=== PATIENT | male | born 1985 | race African-American/Black ===

== ENCOUNTER 2017-01-12 22:58 | Emergency (ER) | payer SELFPAY ==
[~2017-01-12] VITALS: Ht 188 cm; Wt 79.0 kg
[2017-01-12] MEDS ORDERED: SODIUM CHLORIDE 0.9% 1,000 ML IV ONE (23:04)
[2017-01-12] MEDS ORDERED: ONDANSETRON HCL 4MG/2ML VIAL IV STA (23:04)
[2017-01-12] MEDS ORDERED: MORPHINE SULFATE 4 MG/ML CPJ (NOT FOR IM USE) IV STA (23:04)
[2017-01-12] MEDS ORDERED: CEFAZOLIN 1000MG PREMIX 50 ML IV ONE ×2 (23:08→23:15)
[2017-01-12] MEDS ORDERED: MORPHINE SULFATE 4 MG/ML CPJ (NOT FOR IM USE) IV ONE (23:10)
[2017-01-12] MEDS ORDERED: MORPHINE SULFATE 2 MG/ML CPJ (NOT FOR IM USE) ONE (23:12)
[2017-01-12] MEDS ORDERED: BACITRACIN ZINC OINT UDPKT TOP ONE (23:15)
[2017-01-12] MEDS ORDERED: TETANUS, DIPHTHERIA, PERTUSSIS VAC/PF 0.5ML (>7YR OLD) IM ONE (23:15)
[2017-01-12 23:34] LABS: BASOPHILS % 0.4 % (0.0-2.0); EOSINOPHILS % 1.9 % (0.0-5.0); HEMATOCRIT. 33.9 % (42.0-52.0); HEMOGLOBIN. 10.6 g/dL (14.0-18.0); LYMPHOCYTES % 29.1 % (20.0-50.0); MEAN CORPUSCULAR HEMOGLOBIN 24.8 pg (28.0-32.0); MEAN CORPUSCULAR VOLUME 79.1 fL (80.0-94.0); MEAN PLATELET VOLUME 9.3 fl (7.4-10.4); NEUTROPHILS % 57.6 % (40.0-76.0); PLATELET 130 x1000/uL (130-400); RED BLOOD CELL COUNT 4.29 mill/uL (4.7-6.1); RED CELL DISTRIBUTION WIDTH 14.2 % (11.6-14.6)
[2017-01-12 23:38] VITALS: BP 126/58
[2017-01-12 23:40] LABS: CARBON DIOXIDE 25 mEq/L (21-32); CHLORIDE 116 mEq/L (98-107)
[2017-01-12 23:50] LABS: PARTIAL THROMBOPLASTIN TIME 23.8 sec (24.0-34.0); PROTHROMBIN TIME 10.8 sec
[2017-01-12 23:54] LABS: CLARITY URINE TURBID (CLEAR); COLOR URINE RED (YELLOW); GLUCOSE URINE NEGATIVE (NEGATIVE); KETONES URINE NEGATIVE (NEGATIVE); LEUKOCYTE ESTERASE URINE 2+ (NEGATIVE); NITRITE URINE POSITIVE (NEGATIVE); OCCULT BLOOD URINE 2+ (NEGATIVE); PH URINE 6.5 (4.5-8.0); PROTEIN URINE 2+ (NEGATIVE); UROBILINOGEN URINE 0.2 E.U./dL (0.2-1.0)
== END 2017-01-13 00:14 | disposition short-term general hospital (02) ==
LOC: ER 23:10
DX: S31.109A Unspecified open wound of abdominal wall, unspecified quadrant without penetration into peritoneal cavity, initial encounter (principal); R31.0 Gross hematuria; W34.00XA Accidental discharge from unspecified firearms or gun, initial encounter; Y93.89 Activity, other specified; Y92.9 Unspecified place or not applicable; Y99.8 Other external cause status
CPT/HCPCS: 36415; 51702; 71010; 72170; 74000; 80048; 81001; 85025; 85610; 85730; 86850; 86900; 86901; 90471; 90715; 96365; 96375; 99291; J0690; J2270; J2405; J7030; A4315